=== PATIENT | female | born 1975 | race Caucasian/White ===

== ENCOUNTER 2018-10-12 11:11 | Emergency (ER) | payer MEDICAID ==
[2018-10-12] MEDS ORDERED: LORazepam 2 MG/ML INJ NASAL ONE (11:17)
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
[2018-10-12 13:06] VITALS: BP 118/69
== END 2018-10-12 13:48 | disposition home or self-care (01) ==
DX: F41.0 Panic disorder [episodic paroxysmal anxiety] (principal); R05 Cough; F15.20 Other stimulant dependence, uncomplicated; F17.200 Nicotine dependence, unspecified, uncomplicated
CPT/HCPCS: J2060